=== PATIENT | male | born 2000 | race Caucasian/White ===

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

== ENCOUNTER → 2022-05-15 | Outpatient (CLI) | payer BC, OTHER ==
[~2022-05-15] MED LIST: FLUT11IN INH; NICO21PAT TD; ZYRTTAB8 PO
== END ==
LOC: M LABSMTC 11:41
PROVIDERS: ATTEND Anesthesiology
DX: Z01.812 Encounter for preprocedural laboratory examination (principal); Z11.52 Encounter for screening for COVID-19

== ENCOUNTER → 2022-06-16 | Day surgery (SDC) | payer OTHER ==
[~2022-06-16] VITALS: Ht 165.1 cm; Wt 54.4 kg
[~2022-06-16] MED LIST changes: +CelecoXIB 400 MG CAP PO ONE; +FLUO10CA18 PO; +NAPR1TAB86 PO; +ceFAZolin SOD 2 GM in IV 1 EA IV ONE
== END | disposition home or self-care (01) ==
LOC: M SDC 07:54
PROVIDERS: ATTEND Surgery
DX: L05.91 Pilonidal cyst without abscess (principal); Z53.20 Procedure and treatment not carried out because of patient's decision for unspecified reasons

== ENCOUNTER → 2022-07-19 | Outpatient (CLI) | payer OTHER ==
[~2022-07-19] MED LIST changes: -CelecoXIB 400 MG CAP PO ONE; -ceFAZolin SOD 2 GM in IV 1 EA IV ONE
== END ==
LOC: M PLAIMG 15:13
PROVIDERS: ATTEND Nurse Practitioner Family
DX: M79.605 Pain in left leg (principal)